=== PATIENT | male | born 1995 | race Caucasian/White ===

== ENCOUNTER 2017-12-20 18:48 | Emergency (ER) | payer OTHER ==
[~2017-12-20] VITALS: Ht 172.7 cm; Wt 65.3 kg
[2017-12-20 18:51] VITALS: Ht 172.7 cm; Wt 65.3 kg
[2017-12-20 21:56] VITALS: BP 137/84
== END 2017-12-20 21:56 | disposition home or self-care (01) ==
LOC: ED 18:48
DX: S09.90XA Unspecified injury of head, initial encounter (principal); R42 Dizziness and giddiness; R11.2 Nausea with vomiting, unspecified; W22.8XXA Striking against or struck by other objects, initial encounter; Y93.89 Activity, other specified; Y92.89 Other specified places as the place of occurrence of the external cause; Y99.8 Other external cause status
CPT/HCPCS: Q0162